=== PATIENT | female | born 1945 | race Caucasian/White ===

== ENCOUNTER 2020-04-17 10:08 | Inpatient (IN) ==
--- NOTE | 2020-04-17 10:42 | XRay Report ---
INDICATION: sob, cough TECHNIQUE: AP portable semiupright chest x-ray COMPARISON: Previous chest x-ray dated 06/25/2016 FINDINGS: Lungs:Focal infiltrate at the right lung base. This is a new finding since 06/25/2016. Appearance is consistent with pneumonia. Lungs are otherwise negative. No other focal infiltrate or mass. Heart, vascular:No significant cardiomegaly. Pulmonary vascularity is normal. No pulmonary edema or pulmonary congestion Mediastinum, salvador:No mediastinal widening. No hilar mass Pleura:No pleural fluid. No pleural-based mass or calcification Skeletal:There is left convex thoracolumbar scoliosis. No acute abnormality IMPRESSION: 1. Focal infiltrate at the right lung base consistent with pneumonia 2. Otherwise negative chest x-ray Interpreted and Authenticated by: Cristóbal Peralta 04/17/20
[2020-04-17] MEDS ORDERED: AZITHROMYCIN 500 MG in DEXTROSE 5% IN WATER 250 ML IV ONE (10:49)
[2020-04-17] MEDS ORDERED: cefTRIAXone 1 GM VIAL IV ONE ×2 (10:49→15:00)
[2020-04-17] MEDS ORDERED: methylPREDNISolone SOD SUCC 125 MG/2 ML VIAL IV ONE (10:49)
[2020-04-17] MEDS ORDERED: ALBUTEROL SULFATE 5 MG/ML NEB SOLUTION BOTTLE NEB ONE (10:49)
--- NOTE | 2020-04-17 10:57 | Emergency Department Note ---
SOB HPI General Chief Complaint: Shortness of Breath/Dyspnea Stated Complaint: SOB Time Seen by Provider: 04/17/20 10:41 Source: patient and family Mode of arrival: wheelchair Limitations: no limitations History of Present Illness HPI Narrative: The patient presents with approximately 1 week of increasing cough and dyspnea. She has a history of COPD. She has been trying home nebulizers without success. She denies chest pain but does complain of mild nausea. She denies vomiting. She has had subjective fevers but denies any objective fever. She has not been tested for coronavirus but denies any exposure. She denies orthopnea or increased dyspnea with exertion. She denies pain in her legs. Related Data Home Medications Medication Instructions Recorded Confirmed albuterol sulfate 8.5 gm IH PRN PRN 06/25/16 07/09/16 amlodipine 10 mg PO QDAY 04/17/20 04/17/20 aspirin 81 mg PO QDAY 04/17/20 04/17/20 bupropion HCl 150 mg PO QAM 04/17/20 04/17/20 hydrocodone-acetaminophen 1 tab PO Q6H PRN 04/17/20 04/17/20 levothyroxine 125 mcg PO QDAY 04/17/20 04/17/20 montelukast 10 mg PO QDAY 04/17/20 04/17/20 pramipexole 0.125 mg PO BID 04/17/20 04/17/20 Previous Rx's Medication Instructions Recorded Accu-Chek 1 each FS ACHS strip 06/28/16 albuterol sulfate 2.5 mg NEB Q4HRT PRN #30 ampul.neb 06/28/16 ipratropium-albuterol 3 ml NEB TID #30 ampul.neb 06/28/16 atorvastatin 20 mg tablet 20 mg PO HS #90 tab 07/09/16 lisinopril 20 1 tab PO DAILY #90 tab 07/09/16 mg-hydrochlorothiazide 12.5 mg tablet miscellaneous medical supply #1 each 07/09/16 Allergies Allergy/AdvReac Type Severity Reaction Status Date / Time No Known Drug Allergies Allergy Verified 04/17/20 10:09 Review of Systems ROS ROS Narrative: Narrative: All systems ED: reviewed and negative except as stated. PFSH Narrative Patient History Narrative: Narrative: Medical/Surgical/Family History All Active Problems (Updated 04/17/20 @ 13:18 by Ace Hansen MD) Acute exacerbation of chronic obstructive airways disease (Chronic) Hypoxemic respiratory failure, chronic (Acute) Tobacco abuse (Acute) Alcoh dep NEC/NOS, unspec (Acute) Hypothyroid (Acute) Depression with anxiety (Chronic) HTN (hypertension) (Chronic) Community acquired pneumonia (Acute) Sepsis (Acute) Medical History (Updated 04/17/20 @ 13:18 by Ace Hansen MD) Acute exacerbation of chronic obstructive airways disease (Chronic) Alcoh dep NEC/NOS, unspec (Acute) Depression with anxiety (Chronic) HTN (hypertension) (Chronic) Hypothyroid (Acute) Hypoxemic respiratory failure, chronic (Acute) Tobacco abuse (Acute) Social History Smoking Status: Never smoker Alcohol Intake Frequency: holiday/special occasion only Substance Use: does not use Exam Narrative Narrative: Narrative: General Limitations: no limitations General appearance: alert and in no apparent distress Head Head: atraumatic ENT ENT: Absent mucous membranes dry Neck Neck: Present normal inspection Chest Chest: Present symmetric chest wall rise Respiratory Respiratory: Present wheezes and decreased breath sounds; Absent respiratory distress Cardiovascular Cardiovascular: Present tachycardia Adbominal Abdominal: Present soft; Absent distention and tenderness Extremities Extremities: Present normal inspection and other (Negative Homans sign bilaterally); Absent tenderness and pedal edema Neurological Neurological: Present alert Psychiatric Psychiatric: Present normal affect Skin Skin: Present warm Course Reevaluation(s) Reevaluation #1: Due to the patient's mildly elevated lactic acid, I do have a concern about discharging her. I spoke with the patient and she agreed to stay for 1 night to continue receiving therapy for her mild sepsis and pneumonia. Time: 12:26 Reevaluation #2: I spoke to the hospitalist, Dr. Knox. He agreed to come and evaluate this patient for local admission Vital Signs Vital signs: Vital Signs Temperature 99.0 F 04/17/20 10:09 Pulse Rate 132 H 04/17/20 10:09 Respiratory Rate 26 H 04/17/20 10:09 Blood Pressure 173/102 04/17/20 10:09 Pulse Oximetry (%) 95 04/17/20 10:09 Temperature 99.0 F 04/17/20 10:09 Pulse Rate 123 H 04/17/20 14:00 Respiratory Rate 16 04/17/20 14:00 Blood Pressure 136/88 04/17/20 14:00 Pulse Oximetry (%) 91 04/17/20 14:00 [facility] Narrative Medical decision making narrative: The patient presents with cough and increased dyspnea. She has a history of COPD. Differential includes pneumonia, COPD exacerbation, or viral infection, coronavirus considered. Cardiac etiology is less likely but we will rule that out with troponin and EKG. Patient has no concerning risk factors for pulmonary embolism. COPD exacerbation is a much more likely diagnosis. Plan to treat with albuterol and Solu-Medrol as well as give a dose of Rocephin and Zithromax. We will then reevaluate. Patient wishes to go home at the end of the visit if possible. Lab Data Lab results reviewed: Yes I reviewed the patient's lab results. Result diagrams: 04/17/20 10:21 04/17/20 10:21 Labs: Lab Results 04/17/20 04/17/20 04/17/20 Range/Units 10:21 10:21 10:21 WBC 10.5 (4.50-11.00) K/mcL RBC 4.92 (3.59-5.38) M/mcL Hgb 15.1 (11.2-15.7) g/dL Hct 45.0 H (34.1-44.9) % MCV 91.5 (80.0-100.0) fL MCH 30.7 (26.0-34.0) pg MCHC 33.6 (31.0-36.0) g/dL RDW 11.8 (11.5-14.5) % Plt Count 359 (140-440) K/mcL MPV 9.2 (7.4-10.4) fL Gran % 59.4 (38.0-78.0) % Lymph % (Auto) 28.4 (15.5-49.0) % Dixon % (Auto) 9.3 (1.0-12.0) % Eos % (Auto) 2.4 (0.0-7.0) % Baso % (Auto) 0.5 (0.0-2.0) % Gran # 6.23 (1.80-8.00) K/mcL Lymph # (Auto) 2.97 (1.50-4.80) K/mcL Dixon # (Auto) 0.97 H (0.10-0.90) K/mcL Eos # (Auto) 0.25 (0.00-0.70) K/mcL Baso # (Auto) 0.05 (0.00-0.30) K/mcL Band Neutrophils % VBG Lactic Acid (0.5-2.0) mmol/L Sodium 140 (133-145) mmol/L Potassium 4.0 (3.3-5.1) mmol/L Chloride 98 (96-108) mmol/L Carbon Dioxide 21 L (22-30) mmol/L Anion Gap 21.0 H (8-16) BUN 15 (8-23) mg/dl Creatinine 1.1 (0.6-1.1) mg/dl GFR Calculation 50 Glucose 123 H (70-105) mg/dL Calcium 10.6 H (8.6-10.4) mg/dl Total Bilirubin 0.5 (0.0-1.0) mg/dL AST 27 (0-37) U/l ALT 22 (0-40) U/l Alkaline Phosphatase 85 (39-117) U/L Troponin T < 0.01 (0-0.03) ng/ml Total Protein 8.6 H (5.9-8.4) gm/dL Albumin 5.0 (3.2-5.2) gm/dL Globulin 3.6 (2.2-3.7) gm/dL Albumin/Globulin Ratio 1.4 (1.0-2.3) Procalcitonin (<0.10) ng/mL 04/17/20 04/17/20 04/17/20 Range/Units 10:21 10:21 10:22 WBC (4.50-11.00) K/mcL RBC (3.59-5.38) M/mcL Hgb (11.2-15.7) g/dL Hct (34.1-44.9) % MCV (80.0-100.0) fL MCH (26.0-34.0) pg MCHC (31.0-36.0) g/dL RDW (11.5-14.5) % Plt Count (140-440) K/mcL MPV (7.4-10.4) fL Gran % (38.0-78.0) % Lymph % (Auto) (15.5-49.0) % Dixon % (Auto) (1.0-12.0) % Eos % (Auto) (0.0-7.0) % Baso % (Auto) (0.0-2.0) % Gran # (1.80-8.00) K/mcL Lymph # (Auto) (1.50-4.80) K/mcL Dixon # (Auto) (0.10-0.90) K/mcL Eos # (Auto) (0.00-0.70) K/mcL Baso # (Auto) (0.00-0.30) K/mcL Band Neutrophils % Not Reportable VBG Lactic Acid 3.2 H (0.5-2.0) mmol/L Sodium (133-145) mmol/L Potassium (3.3-5.1) mmol/L Chloride (96-108) mmol/L Carbon Dioxide (22-30) mmol/L Anion Gap (8-16) BUN (8-23) mg/dl Creatinine (0.6-1.1) mg/dl GFR Calculation Glucose (70-105) mg/dL Calcium (8.6-10.4) mg/dl Total Bilirubin (0.0-1.0) mg/dL AST (0-37) U/l ALT (0-40) U/l Alkaline Phosphatase (39-117) U/L Troponin T (0-0.03) ng/ml Total Protein (5.9-8.4) gm/dL Albumin (3.2-5.2) gm/dL Globulin (2.2-3.7) gm/dL Albumin/Globulin Ratio (1.0-2.3) Procalcitonin 0.13 (<0.10) ng/mL Radiology Data Radiology results reviewed: Yes I reviewed the patient's radiology results. EKG Data EKG #1: EKG attestation: Yes I reviewed and interpreted this EKG. EKG results narrative: Sinus, rate 115, normal axis, normal intervals, narrow complex QRS, nonspecific ST and T changes but no sign of acute ST elevation ME CC TIME Critical Care Time Critical Care Time: Yes Total Critical Care Time: 75 Attestation: DYLAN Hansen Discharge Plan Patient/Caregiver Discharge Instructions Pt seen by MARGARINE CHURN OPERATOR/PA only: No Clinical Impression: Community acquired pneumonia, Sepsis Patient Disposition: Xfer As Outpt/Obs ([facility]) Follow up with: Kristie Dowling ARNP [Primary Care Provider] - Prescriptions: No Action atorvastatin 20 MG tablet 20 mg PO HS Qty: 90 RF: 0 lisinopril-hydrochlorothiazide 1 TAB tablet 1 tab PO DAILY Qty: 90 RF: 0 (DME) miscellaneous medical supply [Blood Pressure Cuff] misc See Dose Instructions .ROUTE .MEDSUPPLY Qty: 1 RF: 0 albuterol sulfate 8.5 GM HFA aerosol inhaler 8.5 gm IH PRN PRN (Reason: Cough) RF: 0 Accu-Chek 1 EACH strip 1 each FS ACHS RF: 0 ipratropium-albuterol 3 ML solution for nebulization 3 ml NEB TID Qty: 30 RF: 0 albuterol sulfate 2.5 MG/3 ML solution for nebulization 2.5 mg NEB Q4HRT PRN (Reason: Shortness Of Breath Or Wheezing) Qty: 30 RF: 0 amlodipine 10 mg Tablet 10 mg PO QDAY RF: 0 hydrocodone-acetaminophen 10-325 mg Tablet 1 tab PO Q6H PRN (Reason: Pain) RF: 0 levothyroxine 125 mcg Tablet 125 mcg PO QDAY RF: 0 pramipexole 0.125 mg Tablet 0.125 mg PO BID RF: 0 aspirin 81 mg Tablet,Chewable 81 mg PO QDAY RF: 0 montelukast 10 mg Tablet 10 mg PO QDAY RF: 0 bupropion HCl 150 mg Tablet Extended Release 24 Hr 150 mg PO QAM RF: 0
[2020-04-17 11:23] LABS: Basophils # (Auto) 0.05 K/mcL (0.00-0.30); Basophils % (Auto) 0.5 % (0.0-2.0); Eosinophils # (Auto) 0.25 K/mcL (0.00-0.70); Eosinophils % (Auto) 2.4 % (0.0-7.0); Granulocytes % (Auto) 59.4 % (38.0-78.0); Hemoglobin 15.1 g/dL (11.2-15.7); Lymphocytes # (Auto) 2.97 K/mcL (1.50-4.80); Lymphocytes % (Auto) 28.4 % (15.5-49.0); Mean Cell Volume 91.5 fL (80.0-100.0); Mean Corpuscular HGB Conc 33.6 g/dL (31.0-36.0); Mean Platelet Volume 9.2 fL (7.4-10.4); Monocytes # (Auto) 0.97 K/mcL (0.10-0.90); Monocytes % (Auto) 9.3 % (1.0-12.0); Platelet Count 359 K/mcL (140-440); RBC 4.92 M/mcL (3.59-5.38); Red Cell Distribution Width 11.8 % (11.5-14.5); WBC 10.5 K/mcL (4.50-11.00)
[2020-04-17] MEDS ORDERED: 0.9 % SODIUM CHLORIDE 1,000 ML IV ONE (11:39)
[2020-04-17 11:51] LABS: ALT/SGPT 22 U/l (0-40); AST/SGOT 27 U/l (0-37); Albumin/Globulin Ratio 1.4 (1.0-2.3); Alkaline Phosphatase 85 U/L (39-117); Bilirubin,Total 0.5 mg/dL (0.0-1.0); Blood Urea Nitrogen 15 mg/dl (8-23); Calcium 10.6 mg/dl (8.6-10.4); Carbon Dioxide 21 mmol/L (22-30); Chloride 98 mmol/L (96-108); Globulin 3.6 gm/dL (2.2-3.7); Glomerular Filtration Rate 50; Glucose 123 mg/dL (70-105)
--- NOTE | 2020-04-17 13:34 | Internal Med History&Physical ---
HPI History of Present Illness Patient information: Note initiated : 04/17/20 at 1:26 pm Service Date, if different from initiated Date: [] Patient: Rosita Blankenship a 74 y/o F admitted on for Shortness of breath. Chief Complaint: [] History of present illness: Ms. Blankenship is a 74 year old F Presents to the ED with worsening cough and shortness of breath. Patient has COPD and does have chronic shortness of breath and cough but states over the past week or cough is gotten worse and is productive of white thick sputum. Her shortness of breath is worse as well. She has inhalers and nebulizers at home which give her temporary relief. But is gotten so bad that she felt she needed come to the ED. She does feel chills and occasionally hot. She has some nausea but no vomiting. No chest pain. He does feel wheezy and also has lost her appetite. He does admit to feeling that sometimes food or drink goes down the wrong pipe lately. Work-up in the ED revealed that chest x-ray showed a right lower lobe infiltrate. She had a elevated lactate. She was satting low 90s on room air on pulse ox. But she was tachycardic. Received nebulizer treatment with some improvement in ED. Review of Systems: Pertinent positives as above. Denies headache/vomiting/chest or abdominal pain/diarrhea. Remaining 10 point review of system reviewed negative PFSH PFSH All Active Problems (Updated 04/17/20 @ 13:18 by Ace Hansen MD) Acute exacerbation of chronic obstructive airways disease (Chronic) Hypoxemic respiratory failure, chronic (Acute) Tobacco abuse (Acute) Alcoh dep NEC/NOS, unspec (Acute) Hypothyroid (Acute) Depression with anxiety (Chronic) HTN (hypertension) (Chronic) Community acquired pneumonia (Acute) Sepsis (Acute) Medical History (Updated 04/17/20 @ 13:18 by Ace Hansen MD) Acute exacerbation of chronic obstructive airways disease (Chronic) Alcoh dep NEC/NOS, unspec (Acute) Depression with anxiety (Chronic) HTN (hypertension) (Chronic) Hypothyroid (Acute) Hypoxemic respiratory failure, chronic (Acute) Tobacco abuse (Acute) Social History (Updated 04/17/20 @ 13:28 by Rolly Knox DO) smoking status: Never smoker quit status: considering quitting alcohol intake frequency: holiday/special occasion only substance use type: does not use additional history: Past medical history: COPD on 4 L of oxygen at night none during the day Hypertension/hyperlipidemia Depression/anxiety Surgical history: Tonsillectomy partial hysterectomy cholecystectomy Family history: Mother had COPD she did not know her father's medical history Social history: Patient quit smoking 2 9 years ago drinks alcohol rarely and lives at home with family MEDS/ALLERGIES Home Medications and Allergies Home Medications Medication Instructions Recorded Confirmed Type albuterol sulfate 8.5 gm IH PRN PRN 06/25/16 07/09/16 History cetirizine 10 mg PO DAILY 06/25/16 07/09/16 History clonazepam 0.5 mg SL BID 06/25/16 07/09/16 History Accu-Chek 1 each FS ACHS strip 06/28/16 07/09/16 Rx albuterol sulfate 2.5 mg NEB Q4HRT PRN #30 ampul.neb 06/28/16 07/09/16 Rx codeine-guaifenesin 5 ml PO Q6HP PRN #120 ml 06/28/16 07/09/16 Rx ipratropium-albuterol 3 ml NEB TID #30 ampul.neb 06/28/16 07/09/16 Rx nicotine 21 mg TOPICAL DAILY@1000 #14 patch 06/28/16 07/09/16 Rx prednisone 10 mg PO QAC #42 tab 06/28/16 07/09/16 Rx atorvastatin 20 mg tablet 20 mg PO HS #90 tab 07/09/16 07/09/16 Rx citalopram 20 mg tablet 40 mg PO HS #90 tab 07/09/16 07/09/16 Rx hydrocodone 7.5 mg-acetaminophen 1 tab PO Q6HP PRN #30 tab 07/09/16 07/09/16 Rx 325 mg tablet lisinopril 20 1 tab PO DAILY #90 tab 07/09/16 07/09/16 Rx mg-hydrochlorothiazide 12.5 mg tablet miscellaneous medical supply #1 each 07/09/16 07/09/16 Rx amlodipine 10 mg PO QDAY 04/17/20 04/17/20 History Allergies Allergy/AdvReac Type Severity Reaction Status Date / Time No Known Drug Allergies Allergy Verified 04/17/20 10:09 EXAM Constitutional Vitals: Temp Pulse Resp BP Pulse Ox 99.0 F 118 H 22 130/68 92 04/17/20 10:09 04/17/20 12:47 04/17/20 12:47 04/17/20 12:47 04/17/20 12:47 Exam: General: Alert, Awake, No acute Distress Eyes/N/T: EOMI, PERRL, dry MM Head/Neck: neck supple, normocephalic atraumatic CV: Tachycardic but regular, No murmurs, normal s1/s2 Pulm: b/l wheezing and diminished bases. Mild rhonchi, labored. Abd: soft, nontender, +BS x4 Ext: no clubbing/cyanosis/edema Neuro: Alert, no focal deficits, moves all extremities, CN 2-12 grossly intact, symmetrical strength b/l upper/lower, sensations intact b/l upper/lower Skin: warm/dry DATA Data Completed and Pending Labs: Labs from last 24 hours 04/17/20 04/17/20 04/17/20 12:46 10:22 10:21 WBC RBC Hgb Hct MCV MCH MCHC RDW Plt Count MPV Gran % Lymph % (Auto) Woodward % (Auto) Eos % (Auto) Baso % (Auto) Gran # Lymph # (Auto) Woodward # (Auto) Eos # (Auto) Baso # (Auto) Total Counted Band Neutrophils % Platelet Estimate RBC Morphology VBG Lactic Acid 3.2 H Sodium Potassium Chloride Carbon Dioxide Anion Gap BUN Creatinine GFR Calculation Glucose Calcium Total Bilirubin AST ALT Alkaline Phosphatase Troponin T Total Protein Albumin Globulin Albumin/Globulin Ratio Procalcitonin Pending SARS-CoV-2 (PCR) Pending 04/17/20 04/17/20 04/17/20 10:21 10:21 10:21 WBC RBC Hgb Hct MCV MCH MCHC RDW Plt Count MPV Gran % Lymph % (Auto) Woodward % (Auto) Eos % (Auto) Baso % (Auto) Gran # Lymph # (Auto) [place]ward # (Auto) Eos # (Auto) Baso # (Auto) Total Counted Pending Band Neutrophils % Not Reportable Platelet Estimate Pending RBC Morphology Pending VBG Lactic Acid Sodium 140 Potassium 4.0 Chloride 98 Carbon Dioxide 21 L Anion Gap 21.0 H BUN 15 Creatinine 1.1 GFR Calculation 50 Glucose 123 H Calcium 10.6 H Total Bilirubin 0.5 AST 27 ALT 22 Alkaline Phosphatase 85 Troponin T < 0.01 Total Protein 8.6 H Albumin 5.0 Globulin 3.6 Albumin/Globulin Ratio 1.4 Procalcitonin SARS-CoV-2 (PCR) 04/17/20 10:21 WBC 10.5 RBC 4.92 Hgb 15.1 Hct 45.0 H MCV 91.5 MCH 30.7 MCHC 33.6 RDW 11.8 Plt Count 359 MPV 9.2 Gran % 59.4 Lymph % (Auto) 28.4 Woodward % (Auto) 9.3 Eos % (Auto) 2.4 Baso % (Auto) 0.5 Gran # 6.23 Lymph # (Auto) 2.97 Woodward # (Auto) 0.97 H Eos # (Auto) 0.25 Baso # (Auto) 0.05 Total Counted Band Neutrophils % Platelet Estimate RBC Morphology VBG Lactic Acid Sodium Potassium Chloride Carbon Dioxide Anion Gap BUN Creatinine GFR Calculation Glucose Calcium Total Bilirubin AST ALT Alkaline Phosphatase Troponin T Total Protein Albumin Globulin Albumin/Globulin Ratio Procalcitonin SARS-CoV-2 (PCR) A/P Narrative A/P Narrative: A: *AECOPD *RLL PNA(?Aspiration): *Dyspnea, labored breathing, concern for exhaustion and subsequent respiratory failure: *Lactic acidosis: *SIRS: 2/2 abvoe *HTN/HLD: *Depression/anxiety: * P: -steroids (wean)/IH's -Rocephin/Azithro -pending BC/SC/RVP/COVID -check ABG -f/u lactate -IS/Acapella -ST eval - -ppx: lovenox Time Spent With Patient Time: Total time spent is greater than 50% in coordination of care (as documented) at patient's floor/unit and/or counseling patient:
[2020-04-17 14:08] LABS: Eosinophils % (Manual) 2 % (0-7); Lymphocytes % 27 % (15-49); Monocytes % (Manual) 7 % (1-12); Platelet Estimate NORMAL (NORMAL); RBC Morphology NORMAL (NORMAL); Reactive Lymphocytes 4 % (0-2); Segmented Neutrophils % 60 % (38-78)
[2020-04-17] MEDS ORDERED: DEXTROSE 50% 50 ML VIAL IV PRN (14:18)
[2020-04-17] MEDS ORDERED: POTASSIUM CHLORIDE 20 MEQ TABLET PO PRN ×2 (14:18)
[2020-04-17] MEDS ORDERED: POTASSIUM CHLORIDE 40 MEQ in DEXTROSE 5% IN WATER 500 ML IV PRN (14:18)
[2020-04-17] MEDS ORDERED: POLYETHYLENE GLYCOL 3350 17 GM PACKET PO PRN (14:18)
[2020-04-17] MEDS ORDERED: MAGNESIUM SULFATE 2 GM/50 ML BAG IV PRN (14:18)
[2020-04-17] MEDS ORDERED: ONDANSETRON 4 MG/2 ML VIAL IV PRN (14:18)
[2020-04-17] MEDS ORDERED: DEXTROSE 31 GM ORAL.SUSP PO PRN (14:18)
[2020-04-17] MEDS: methylPREDNISolone SOD SUCC 125 MG/2 ML VIAL IV SCH (16:00)
[2020-04-17] MEDS: ACETAMINOPHEN 325 MG TABLET PO PRN (16:01)
[2020-04-17] MEDS: 0.9 % SODIUM CHLORIDE 10 ML SYRINGE IV SCH ×2 (16:34→21:10)
[2020-04-17] MEDS: INSULIN LISPRO 1 UNIT/0.01 ML UNIT SQ SCH ×2 (17:16→21:08)
[2020-04-17] MEDS: IPRATROPIUM/ALBUTEROL SULFATE 1 PUFF INHALER INH SCH ×2 (17:59→21:06)
[2020-04-17] MEDS ORDERED: METOPROLOL TARTRATE 25 MG TABLET PO ONE (19:57)
[2020-04-17] MEDS: ATORVASTATIN 20 MG TABLET PO SCH (21:06)
[2020-04-17] MEDS: DOCUSATE SODIUM 100 MG CAPSULE PO SCH (21:06)
[2020-04-17] MEDS: PRAMIPEXOLE 0.25 MG TABLET PO SCH (21:06)
[2020-04-17] MEDS: HYDROcodone/APAP 10/325MG TABLET PO PRN (21:06)
[2020-04-18] MEDS: methylPREDNISolone SOD SUCC 125 MG/2 ML VIAL IV SCH ×4 (00:01→21:59)
[2020-04-18] MEDS: HYDROcodone/APAP 10/325MG TABLET PO PRN ×3 (04:07→18:03)
[2020-04-18] MEDS: 0.9 % SODIUM CHLORIDE 10 ML SYRINGE IV SCH ×3 (05:53→21:59)
[2020-04-18 06:45] LABS: Basophils # (Auto) 0.01 K/mcL (0.00-0.30); Basophils % (Auto) 0.1 % (0.0-2.0); Eosinophils # (Auto) 0 K/mcL (0.00-0.70); Eosinophils % (Auto) 0 % (0.0-7.0); Granulocytes % (Auto) 85.7 % (38.0-78.0); Hematocrit 39.7 % (34.1-44.9); Hemoglobin 13.6 g/dL (11.2-15.7); Lymphocytes # (Auto) 1.35 K/mcL (1.50-4.80); Lymphocytes % (Auto) 12.4 % (15.5-49.0); Mean Cell Volume 90.2 fL (80.0-100.0); Mean Corpuscular HGB Conc 34.3 g/dL (31.0-36.0); Mean Platelet Volume 9.2 fL (7.4-10.4); Monocytes % (Auto) 1.8 % (1.0-12.0); Platelet Count 340 K/mcL (140-440); Red Cell Distribution Width 11.6 % (11.5-14.5); WBC 10.9 K/mcL (4.50-11.00)
--- NOTE | 2020-04-18 06:46 | XRay Report ---
INDICATION: f/u RLL infiltrate TECHNIQUE: AP portable semiupright chest x-ray COMPARISON: Previous examinations dated 04/17/2020, 06/25/2016 FINDINGS: Lungs:Mild density at the right lung base is essentially unchanged since 04/17/2020. No new abnormality Heart, vascular:No significant cardiomegaly. Pulmonary vascularity is normal. No pulmonary edema or pulmonary congestion Mediastinum, salvador:No mediastinal widening. No hilar mass Pleura:No pleural fluid. No pleural-based mass or calcification Skeletal:Significant left convex thoracolumbar scoliosis IMPRESSION: 1. Mild right basilar infiltrate 2. No interval change since 04/17/2020 Interpreted and Authenticated by: Cristóbal Peralta 04/18/20
[2020-04-18 07:15] LABS: ALT/SGPT 21 U/l (0-40); AST/SGOT 29 U/l (0-37); Albumin 4.5 gm/dL (3.2-5.2); Albumin/Globulin Ratio 1.4 (1.0-2.3); Alkaline Phosphatase 77 U/L (39-117); Bilirubin,Direct < 0.2 mg/dL (0.0-0.3); Bilirubin,Total 0.3 mg/dL (0.0-1.0); Calcium 9.9 mg/dl (8.6-10.4); Carbon Dioxide 21 mmol/L (22-30); Chloride 97 mmol/L (96-108); Globulin 3.2 gm/dL (2.2-3.7); Glomerular Filtration Rate 50; Glucose 136 mg/dL (70-105); Lactate Dehydrogenase 252 U/L (94-250); Phosphorous 3.6 mg/dL (2.7-4.5); Triglycerides 60 mg/dl (<150); Uric Acid 6.9 mg/dL (2.5-8.0)
[2020-04-18 07:16] LABS: Blood Urea Nitrogen 24 mg/dl (8-23)
[2020-04-18] MEDS: INSULIN LISPRO 1 UNIT/0.01 ML UNIT SQ SCH ×4 (07:54→20:39)
--- NOTE | 2020-04-18 07:54 | Internal Med Progress Note ---
SUBJECTIVE Subjective Patient information: Note initiated : 04/18/20 at 7:48 am Service Date, if different from initiated Date: [] Patient: Rosita Blankenship a 74 y/o F admitted on 04/17/20 for Shortness of breath. Chief Complaint: [] Interval history: History of present illness: Ms. Blankenship is a 74 year old F Presents to the ED with worsening cough and shortness of breath. Patient has COPD and does have chronic shortness of breath and cough but states over the past week or cough is gotten worse and is productive of white thick sputum. Her shortness of breath is worse as well. She has inhalers and nebulizers at home which give her temporary relief. But is gotten so bad that she felt she needed come to the ED. She does feel chills and occasionally hot. She has some nausea but no vomiting. No chest pain. He does feel wheezy and also has lost her appetite. He does admit to feeling that sometimes food or drink goes down the wrong pipe lately. Work-up in the ED revealed that chest x-ray showed a right lower lobe infiltrate. She had a elevated lactate. She was satting low 90s on room air on pulse ox. But she was tachycardic. Received nebulizer treatment with some improvement in ED. 04/18 Patient states her breathing was improving yesterday afternoon early evening but then says last night it got bad again. Cough was more productive yesterday but overnight unable to produce sputum. Awaiting speech therapy evaluation COVID testing. She appears less distressed than when I saw her in the ED yesterday. Review of Systems: denies headache/fever/chills/nausea/vomiting/chest or abdominal pain/diarrhea. Otherwise see above. Constitutional Vitals: Vital Signs Temp Pulse Resp BP Pulse Ox 97.4 F 100 H 18 130/76 92 04/18/20 07:22 04/18/20 07:22 04/18/20 07:22 04/18/20 07:22 04/18/20 07:22 Period Temp Pulse Resp BP Sys/Barrett Pulse Ox Last 24 Hr 97.1 F-99.0 F 86-132 10-41 107-173/64-102 89-97 Intake and Output 04/17/20 04/18/20 04/18/20 21:59 05:59 13:59 Intake Total 1200 800 Output Total 200 800 Balance 1000 0 Weight 72.802 kg Intake & Output: Intake & Output 04/17/20 04/18/20 04/18/20 21:59 05:59 13:59 Intake Total 1200 800 Output Total 200 800 Balance 1000 0 Weight 72.802 kg Intake: IV 600 Sodium Chloride 0.9% 1,000 ml @ 600 Wide Open IV BOLUS ONE Rx#: [id number] Oral 600 800 Output: Void Amount 200 800 Other: Meal Nourishment/Supplement Percent of Meal Consumed 100% Feeding Ability Independent Urine Appearance Clear Clear Urine Color Bright Yellow Bright Yellow Urine Odor Normal Normal Stool Size Large Stool Color Brown Black Stool Consistency Soft Formed # Voids 1 Exam: General: Alert, Awake, No acute Distress Eyes/N/T: EOMI, Head/Neck: neck supple, CV: mildly Tachycardic but regular, No murmurs, Pulm: b/l wheezing and diminished bases. Mild b/l rhonchi. Abd: soft, nontender, +BS x4 Ext: no clubbing/cyanosis/edema Neuro: Alert, no focal deficits, moves all extremities, Skin: warm/dry OBJ DATA Labs CBC & Chem 7: 04/18/20 05:44 04/18/20 05:44 Labs: Abnormal Lab Results 04/18/20 04/18/20 04/17/20 05:44 05:44 10:22 Hct Gran % 85.7 H Lymph % (Auto) 12.4 L Gran # 9.34 H Lymph # (Auto) 1.35 L [place] # (Auto) Reactive Lymphocytes VBG Lactic Acid 3.2 H Carbon Dioxide 21 L Anion Gap BUN 24 H Glucose 136 H Calcium Lactate Dehydrogenase 252 H Total Protein 04/17/20 04/17/20 04/17/20 10:21 10:21 10:21 Hct 45.0 H Gran % Lymph % (Auto) Gran # Lymph # (Auto) [place] # (Auto) 0.97 H Reactive Lymphocytes 4 H VBG Lactic Acid Carbon Dioxide 21 L Anion Gap 21.0 H BUN Glucose 123 H Calcium 10.6 H Lactate Dehydrogenase Total Protein 8.6 H Meds: Medications Acetaminophen (Tylenol) 650 mg PO Q6HP PRN PRN Reason: PAIN/FEVER > 101 Last Admin: 04/17/20 16:01 Dose: 650 mg Documented by: Hydrocodone Bitart/Acetaminophen ([place] 10/325mg) 1 tab PO Q6HP PRN; Protocol PRN Reason: Per Pain Protocol Last Admin: 04/18/20 04:07 Dose: 1 tab Documented by: Albuterol/Ipratropium (Combivent) 2 puff INH QID [facility] Last Admin: 04/17/20 21:06 Dose: 2 puff Documented by: Amlodipine Besylate (Norvasc) 10 mg PO QDAY [facility] Aspirin (Aspirin) 81 mg PO QDAY [facility] Atorvastatin Calcium (Lipitor) 20 mg PO HS [facility] Last Admin: 04/17/20 21:06 Dose: 20 mg Documented by: Bupropion HCl (Wellbutrin Xl) 150 mg PO QAM [facility] Dextrose (Dextrose 50%) 0 ml IV UD PRN PRN Reason: Hypoglycemia Diagnostic Test (Pha) (Accu-Chek) 1 each FS [facility] Last Admin: 04/17/20 21:08 Dose: 1 each Documented by: Docusate Sodium (Colace) 100 mg PO BID [facility] Last Admin: 04/17/20 21:06 Dose: 100 mg Documented by: Enoxaparin Sodium (Lovenox) 40 mg SQ DAILY [facility] Glucose (Insta-Glucose) 15 gm PO PRN PRN PRN Reason: Hypoglycemia Hydrochlorothiazide (Oretic) 12.5 mg PO DAILY [facility] Potassium Chloride 40 meq/ (Dextrose) 520 mls @ 130 mls/hr IV UD PRN PRN Reason: Potassium < 3 Magnesium Sulfate (Magnesium Sulfate) 2 gm in 50 mls @ 50 mls/hr IV UD PRN PRN Reason: Magnesium </= 1.6 Ceftriaxone Sodium 2 gm/ (Dextrose) 50 mls @ 100 mls/hr IV Q24H [facility]; Protocol Azithromycin 500 mg/ Dextrose 250 mls @ 250 mls/hr IV Q24H [facility]; Protocol Stop: 04/20/20 10:59 Insulin Human Lispro (Humalog) 0 unit SQ ACHS [facility]; Protocol Last Admin: 04/17/20 21:08 Dose: Not Given Documented by: Levothyroxine Sodium (Synthroid) 125 mcg PO QDAY [facility] Lisinopril (Zestril) 20 mg PO DAILY [facility] Methylprednisolone Sodium Succinate (Solu-Medrol) 80 mg IV Q8 [facility] Last Admin: 04/18/20 05:53 Dose: 80 mg Documented by: Montelukast Sodium (Singular) 10 mg PO QDAY [facility] Ondansetron HCl (Zofran) 4 mg IV Q4HP PRN PRN Reason: Nausea And Vomiting Polyethylene Glycol (Miralax) 17 gm PO DAILYP PRN PRN Reason: Constipation Potassium Chloride (Kdur) 40 meq PO UD PRN PRN Reason: Potssium is 3-3.5 Potassium Chloride (Kdur) 40 meq PO UD PRN PRN Reason: Potassium < 3 Pramipexole Dihydrochloride (Mirapex) 0.125 mg PO BID [facility] Last Admin: 04/17/20 21:06 Dose: 0.125 mg Documented by: Sodium Chloride (Saline Flush) 10 ml IV Q8 [facility] Last Admin: 04/18/20 05:53 Dose: 10 ml Documented by: A/P Narrative A/P Narrative: A: *AECOPD: -RVP neg *RLL PNA(?Aspiration): *Dyspnea, labored breathing: *Lactic acidosis: resolved *SIRS: 2/2 abvoe *HTN/HLD: *Depression/anxiety: * P: -steroids (wean)/IH's, will try neb treatment this morning -Rocephin/Azithro -pending BC/SC/COVID -IS/Acapella -ST eval - -ppx: lovenox Time Spent With Patient Time: Total time spent is greater than 50% in coordination of care (as documented) at patient's floor/unit and/or counseling patient: QUALITY VTE Deep Vein Thrombosis/Pulmonary Embolism Present on Admission: No
[2020-04-18] MEDS: IPRATROPIUM/ALBUTEROL SULFATE 1 PUFF INHALER INH SCH ×4 (08:01→20:36)
[2020-04-18] MEDS ORDERED: IPRATROPIUM/ALBUTEROL 3 ML AMPUL.NEB NEB ONE (08:26)
[2020-04-18] MEDS ORDERED: IPRATROPIUM/ALBUTEROL SULFATE 1 PUFF INHALER INH PRN (08:54)
[2020-04-18] MEDS ORDERED: LISINOPRIL/HCTZ 20/12.5MG TABLET PO SCH (09:00)
[2020-04-18] MEDS: cefTRIAXone 2 GM in DEXTROSE 5% IN WATER 50 ML IV SCH (09:54)
[2020-04-18] MEDS: HYDROCHLOROTHIAZIDE 12.5 MG CAPSULE PO SCH (09:57)
[2020-04-18] MEDS: ASPIRIN 81 MG TAB.CHEW PO SCH (09:57)
[2020-04-18] MEDS: MONTELUKAST 10 MG TABLET PO SCH (09:57)
[2020-04-18] MEDS: PRAMIPEXOLE 0.25 MG TABLET PO SCH ×2 (09:58→20:36)
[2020-04-18] MEDS: amLODIPine 10 MG TABLET PO SCH (09:58)
[2020-04-18] MEDS: buPROPion 150 MG TAB.XL.24H PO SCH (09:59)
[2020-04-18] MEDS: LEVOTHYROXINE 125 MCG TABLET PO SCH (09:59)
[2020-04-18] MEDS: LISINOPRIL 20 MG TABLET PO SCH (09:59)
[2020-04-18] MEDS: DOCUSATE SODIUM 100 MG CAPSULE PO SCH ×2 (10:01→20:37)
[2020-04-18] MEDS: ENOXAPARIN 40 MG/0.4 ML SYRINGE SQ SCH (10:02)
[2020-04-18] MEDS: AZITHROMYCIN 500 MG in DEXTROSE 5% IN WATER 250 ML IV SCH (10:32)
[2020-04-18] MEDS: ATORVASTATIN 20 MG TABLET PO SCH (20:36)
[2020-04-18] MEDS: ACETAMINOPHEN 325 MG TABLET PO PRN (20:36)
[2020-04-19] MEDS: HYDROcodone/APAP 10/325MG TABLET PO PRN ×2 (04:10→13:17)
[2020-04-19] MEDS: 0.9 % SODIUM CHLORIDE 10 ML SYRINGE IV SCH (06:01)
[2020-04-19] MEDS: methylPREDNISolone SOD SUCC 125 MG/2 ML VIAL IV SCH (06:01)
[2020-04-19] MEDS: ACETAMINOPHEN 325 MG TABLET PO PRN (06:04)
[2020-04-19] MEDS: LISINOPRIL 20 MG TABLET PO SCH (07:44)
[2020-04-19] MEDS: LEVOTHYROXINE 125 MCG TABLET PO SCH (07:44)
[2020-04-19] MEDS: HYDROCHLOROTHIAZIDE 12.5 MG CAPSULE PO SCH (07:44)
[2020-04-19] MEDS: PRAMIPEXOLE 0.25 MG TABLET PO SCH (07:44)
[2020-04-19] MEDS: MONTELUKAST 10 MG TABLET PO SCH (07:44)
[2020-04-19] MEDS: amLODIPine 10 MG TABLET PO SCH (07:45)
[2020-04-19] MEDS: DOCUSATE SODIUM 100 MG CAPSULE PO SCH (07:45)
[2020-04-19] MEDS: ASPIRIN 81 MG TAB.CHEW PO SCH (07:45)
[2020-04-19] MEDS: buPROPion 150 MG TAB.XL.24H PO SCH (07:45)
[2020-04-19 07:47] LABS: ALT/SGPT 22 U/l (0-40); AST/SGOT 38 U/l (0-37); Albumin 4.6 gm/dL (3.2-5.2); Albumin/Globulin Ratio 1.5 (1.0-2.3); Alkaline Phosphatase 68 U/L (39-117); Bilirubin,Direct < 0.2 mg/dL (0.0-0.3); Bilirubin,Total 0.3 mg/dL (0.0-1.0); Blood Urea Nitrogen 27 mg/dl (8-23); Calcium 10.1 mg/dl (8.6-10.4); Carbon Dioxide 24 mmol/L (22-30); Chloride 99 mmol/L (96-108); Glomerular Filtration Rate 64; Glucose 142 mg/dL (70-105); Lactate Dehydrogenase 249 U/L (94-250); Phosphorous 4.2 mg/dL (2.7-4.5); Triglycerides 95 mg/dl (<150); Uric Acid 7.2 mg/dL (2.5-8.0)
[2020-04-19] MEDS: IPRATROPIUM/ALBUTEROL SULFATE 1 PUFF INHALER INH SCH (07:48)
[2020-04-19] MEDS: cefTRIAXone 2 GM in DEXTROSE 5% IN WATER 50 ML IV SCH (07:48)
[2020-04-19] MEDS ORDERED: METOPROLOL SUCCINATE 25 MG TAB.XL.24H PO ONE (07:56)
[2020-04-19] MEDS: ENOXAPARIN 40 MG/0.4 ML SYRINGE SQ SCH (07:57)
--- NOTE | 2020-04-19 07:57 | Internal Med Progress Note ---
SUBJECTIVE Subjective Patient information: Note initiated : 04/19/20 at 7:52 am Service Date, if different from initiated Date: [] Patient: Rosita Blankenship a 74 y/o F admitted on 04/17/20 for Shortness of breath. Chief Complaint: [] Interval history: History of present illness: Ms. Blankenship is a 74 year old F Presents to the ED with worsening cough and shortness of breath. Patient has COPD and does have chronic shortness of breath and cough but states over the past week or cough is gotten worse and is productive of white thick sputum. Her shortness of breath is worse as well. She has inhalers and nebulizers at home which give her temporary relief. But is gotten so bad that she felt she needed come to the ED. She does feel chills and occasionally hot. She has some nausea but no vomiting. No chest pain. He does feel wheezy and also has lost her appetite. He does admit to feeling that sometimes food or drink goes down the wrong pipe lately. Work-up in the ED revealed that chest x-ray showed a right lower lobe infiltrate. She had a elevated lactate. She was satting low 90s on room air on pulse ox. But she was tachycardic. Received nebulizer treatment with some improvement in ED. 04/18 Patient states her breathing was improving yesterday afternoon early evening but then says last night it got bad again. Cough was more productive yesterday but overnight unable to produce sputum. Awaiting speech therapy evaluation COVID testing. She appears less distressed than when I saw her in the ED yesterday. 04/19 Patient feels much better today. Does not appreciate wheeziness. Minimal dyspnea. Minimal cough. Weaning down steroids. And by speech therapy and found to be aspirating on thin liquids and placed on modified diet. Review of Systems: denies headache/fever/chills/nausea/vomiting/chest or abdominal pain/diarrhea. Otherwise see above. Constitutional Vitals: Vital Signs Temp Pulse Resp BP Pulse Ox 98.6 F 102 H 20 123/78 91 04/19/20 07:09 04/19/20 07:09 04/19/20 07:09 04/19/20 07:09 04/19/20 07:09 Period Temp Pulse Resp BP Sys/Barrett Pulse Ox Last 24 Hr 97.2 F-98.8 F 97-105 8-22 116-141/68-78 89-92 Intake and Output 04/18/20 04/19/20 04/19/20 21:59 05:59 13:59 Intake Total 750 1000 Output Total 1100 Balance 750 -100 Weight 73.845 kg Intake & Output: Intake & Output 04/18/20 04/19/20 04/19/20 21:59 05:59 13:59 Intake Total 750 1000 Output Total 1100 Balance 750 -100 Weight 73.845 kg Intake: Oral 750 1000 Output: Void Amount 1100 Other: Meal Lunch Percent of Meal Consumed 100% Feeding Ability Independent Urine Appearance Clear Clear Urine Color Pale Bright Yellow Urine Odor Normal Normal # Voids 5 Exam: General: Alert, Awake, No acute Distress Eyes/N/T: EOMI, Head/Neck: neck supple, CV: mildly Tachycardic but regular, No murmurs, Pulm: no wheezing today. Mild b/l rhonchi improved Abd: soft, nontender, +BS x4 Ext: no clubbing/cyanosis/edema Neuro: Alert, no focal deficits, moves all extremities, Skin: warm/dry OBJ DATA Labs CBC & Chem 7: 04/18/20 05:44 04/19/20 06:02 Labs: Abnormal Lab Results 04/19/20 04/18/20 04/18/20 06:02 05:44 05:44 Hct Gran % 85.7 H Lymph % (Auto) 12.4 L Gran # 9.34 H Lymph # (Auto) 1.35 L [place] # (Auto) Reactive Lymphocytes VBG Lactic Acid Carbon Dioxide 21 L Anion Gap BUN 27 H 24 H Glucose 142 H 136 H Calcium AST 38 H Lactate Dehydrogenase 252 H Total Protein 04/17/20 04/17/20 04/17/20 10:22 10:21 10:21 Hct Gran % Lymph % (Auto) Gran # Lymph # (Auto) [place] # (Auto) Reactive Lymphocytes 4 H VBG Lactic Acid 3.2 H Carbon Dioxide 21 L Anion Gap 21.0 H BUN Glucose 123 H Calcium 10.6 H AST Lactate Dehydrogenase Total Protein 8.6 H 04/17/20 10:21 Hct 45.0 H Gran % Lymph % (Auto) Gran # Lymph # (Auto) [place] # (Auto) 0.97 H Reactive Lymphocytes VBG Lactic Acid Carbon Dioxide Anion Gap BUN Glucose Calcium AST Lactate Dehydrogenase Total Protein Meds: Medications Acetaminophen (Tylenol) 650 mg PO Q6HP PRN PRN Reason: PAIN/FEVER > 101 Last Admin: 04/19/20 06:04 Dose: 650 mg Documented by: Hydrocodone Bitart/Acetaminophen ([place] 10/325mg) 1 tab PO Q6HP PRN; Protocol PRN Reason: Per Pain Protocol Last Admin: 04/19/20 04:10 Dose: 1 tab Documented by: Albuterol/Ipratropium (Combivent) 2 puff INH QID [facility] Last Admin: 04/18/20 20:36 Dose: 2 puff Documented by: Albuterol/Ipratropium (Combivent) 2 puff INH Q4HP PRN PRN Reason: dyspnea Amlodipine Besylate (Norvasc) 10 mg PO QDAY [facility] Last Admin: 04/18/20 09:58 Dose: 10 mg Documented by: Aspirin (Aspirin) 81 mg PO QDAY [facility] Last Admin: 04/18/20 09:57 Dose: 81 mg Documented by: Atorvastatin Calcium (Lipitor) 20 mg PO HS [facility] Last Admin: 04/18/20 20:36 Dose: 20 mg Documented by: Bupropion HCl (Wellbutrin Xl) 150 mg PO QAM [facility] Last Admin: 04/18/20 09:59 Dose: 150 mg Documented by: Dextrose (Dextrose 50%) 0 ml IV UD PRN PRN Reason: Hypoglycemia Diagnostic Test (Pha) (Accu-Chek) 1 each FS ACHS [facility] Last Admin: 04/18/20 20:39 Dose: 1 each Documented by: Docusate Sodium (Colace) 100 mg PO BID [facility] Last Admin: 04/18/20 20:37 Dose: 100 mg Documented by: Enoxaparin Sodium (Lovenox) 40 mg SQ DAILY [facility] Last Admin: 04/18/20 10:02 Dose: 40 mg Documented by: Glucose (Insta-Glucose) 15 gm PO PRN PRN PRN Reason: Hypoglycemia Hydrochlorothiazide (Oretic) 12.5 mg PO DAILY [facility] Last Admin: 04/18/20 09:57 Dose: 12.5 mg Documented by: Potassium Chloride 40 meq/ (Dextrose) 520 mls @ 130 mls/hr IV UD PRN PRN Reason: Potassium < 3 Magnesium Sulfate (Magnesium Sulfate) 2 gm in 50 mls @ 50 mls/hr IV UD PRN PRN Reason: Magnesium </= 1.6 Ceftriaxone Sodium 2 gm/ (Dextrose) 50 mls @ 100 mls/hr IV Q24H [facility]; Protocol Last Infusion: 04/18/20 10:25 Dose: Infused Documented by: Azithromycin 500 mg/ Dextrose 250 mls @ 250 mls/hr IV Q24H [facility]; Protocol Stop: 04/20/20 10:59 Last Infusion: 04/18/20 11:35 Dose: Infused Documented by: Insulin Human Lispro (Humalog) 0 unit SQ ACHS [facility]; Protocol Last Admin: 04/18/20 20:39 Dose: Not Given Documented by: Levothyroxine Sodium (Synthroid) 125 mcg PO QDAY [facility] Last Admin: 04/18/20 09:59 Dose: 125 mcg Documented by: Lisinopril (Zestril) 20 mg PO DAILY [facility] Last Admin: 04/18/20 09:59 Dose: 20 mg Documented by: Methylprednisolone Sodium Succinate (Solu-Medrol) 80 mg IV Q8 [facility] Last Admin: 04/19/20 06:01 Dose: 80 mg Documented by: Montelukast Sodium (Singular) 10 mg PO QDAY [facility] Last Admin: 04/18/20 09:57 Dose: 10 mg Documented by: Ondansetron HCl (Zofran) 4 mg IV Q4HP PRN PRN Reason: Nausea And Vomiting Polyethylene Glycol (Miralax) 17 gm PO DAILYP PRN PRN Reason: Constipation Potassium Chloride (Kdur) 40 meq PO UD PRN PRN Reason: Potssium is 3-3.5 Potassium Chloride (Kdur) 40 meq PO UD PRN PRN Reason: Potassium < 3 Pramipexole Dihydrochloride (Mirapex) 0.125 mg PO BID [facility] Last Admin: 04/18/20 20:36 Dose: 0.125 mg Documented by: Sodium Chloride (Saline Flush) 10 ml IV Q8 [facility] Last Admin: 04/19/20 06:01 Dose: 10 ml Documented by: A/P Narrative A/P Narrative: A: *AECOPD: improving -COVID/RVP neg, SC neg *RLL PNA(Aspiration, on thin liquids per ST: *Moderate Oropharyngeal Dysphagia: *Dyspnea: improved *Lactic acidosis: resolved *SIRS: 2/2 abvoe *HTN/HLD: *Depression/anxiety: * P: -steroids (wean)/nebs -Rocephin/Azithro - -IS/Acapella -Dysphagia diet per ST -ppx: lovenox Time Spent With Patient Time: Total time spent is greater than 50% in coordination of care (as documented) at patient's floor/unit and/or counseling patient: QUALITY VTE Deep Vein Thrombosis/Pulmonary Embolism Present on Admission: No
[2020-04-19] MEDS: INSULIN LISPRO 1 UNIT/0.01 ML UNIT SQ SCH ×2 (08:03→13:10)
[2020-04-19] MEDS: AZITHROMYCIN 500 MG in DEXTROSE 5% IN WATER 250 ML IV SCH (11:31)
[2020-04-19] MEDS ORDERED: IPRATROPIUM/ALBUTEROL 3 ML AMPUL.NEB NEB SCH (13:00)
--- NOTE | 2020-04-19 13:47 | Discharge Summary ---
Discharge Provider Provider Patient information: Note initiated : 04/19/20 at 1:44 pm Service Date, if different from initiated Date: [] Patient: Rosita Blankenship 74 y/o F admitted on 04/17/20 for Shortness of breath. Chief Complaint: [] Date of admission: 04/17/20 14:06 Discharge date: 04/19/20 Primary care physician: Kristie Dowling Consults: 04/17/20 Consult to Physician [CONS] Stat Comment: Consulting Provider: Rolly Knox Reason For Exam: Physician to Consult Discharge Meds Discharge Medications Home Medications albuterol sulfate 8.5 gm IH PRN PRN 06/25/16 [History Confirmed 04/17/20 Last Taken 04/17/20 1 Dose] albuterol sulfate 2.5 mg NEB Q4HRT PRN #30 ampul.neb 06/28/16 [Rx Confirmed 04/17/20 Last Taken 04/17/20 1 Unit Dose] ipratropium-albuterol 3 ml NEB TID #30 ampul.neb 06/28/16 [Rx Confirmed 04/17/20 Last Taken 04/17/20 1 unit Dose] atorvastatin 20 mg tablet 20 mg PO HS #90 tab 07/09/16 [Rx Confirmed 04/17/20 Last Taken 04/16/20 20 mg] lisinopril 20 mg-hydrochlorothiazide 12.5 mg tablet 1 tab PO DAILY #90 tab 07/09/16 [Rx Confirmed 04/17/20 Last Taken 04/16/20 1 Tab] amlodipine 10 mg PO QDAY 04/17/20 [History Confirmed 04/17/20 Last Taken 04/17/20 10 mg] aspirin 81 mg PO QDAY 04/17/20 [History Confirmed 04/17/20 Last Taken 04/17/20 81 mg] bupropion HCl 150 mg PO QAM 04/17/20 [History Confirmed 04/17/20 Last Taken 04/17/20 150 mg] hydrocodone-acetaminophen 1 tab PO Q6H PRN 04/17/20 [History Confirmed 04/17/20 Last Taken 04/17/20 1 Tab] levothyroxine 125 mcg PO QDAY 04/17/20 [History Confirmed 04/17/20 Last Taken 04/17/20 125 mcg] montelukast 10 mg PO QDAY 04/17/20 [History Confirmed 04/17/20 Last Taken 04/16/20 10 mg] pramipexole 0.125 mg PO BID 04/17/20 [History Confirmed 04/17/20 Last Taken 04/17/20 0.125 mg] hydrocodone-acetaminophen 1 tab PO Q6H PRN 04/18/20 [History Confirmed 04/18/20 Last Taken 04/17/20 1 Tab] Lactobacillus acidophilus 2,000 mmu cells PO QDAY #30 cap 04/19/20 [Rx Last Taken Unknown] amoxicillin-pot clavulanate [Augmentin] 1 tab PO BID #6 tab 04/19/20 [Rx Last Taken Unknown] prednisone 40 mg PO QDAY #1 tab 04/19/20 [Rx Last Taken Unknown] COURSE Hospital Course Hospital course: Interval history: History of present illness: Ms. Blankenship is a 74 year old F Presents to the ED with worsening cough and shortness of breath. Patient has COPD and does have chronic shortness of breath and cough but states over the past week or cough is gotten worse and is productive of white thick sputum. Her shortness of breath is worse as well. She has inhalers and nebulizers at home which give her temporary relief. But is gotten so bad that she felt she needed come to the ED. She does feel chills and occasionally hot. She has some nausea but no vomiting. No chest pain. He does feel wheezy and also has lost her appetite. He does admit to feeling that sometimes food or drink goes down the wrong pipe lately. Work-up in the ED revealed that chest x-ray showed a right lower lobe infiltrate. She had a elevated lactate. She was satting low 90s on room air on pulse ox. But she was tachycardic. Received nebulizer treatment with some improvement in ED. 04/18 Patient states her breathing was improving yesterday afternoon early evening but then says last night it got bad again. Cough was more productive yesterday but overnight unable to produce sputum. Awaiting speech therapy evaluation COVID testing. She appears less distressed than when I saw her in the ED yesterday. 04/19 Patient feels much better today. Does not appreciate wheeziness. Minimal dyspnea. Minimal cough. Weaning down steroids. And by speech therapy and found to be aspirating on thin liquids and placed on modified diet. Rosita is doing quite well throughout the morning and early afternoon. She is walking further than she usually does at home. Breathing well and good oxygen on room air. Stable for discharge. A: *AECOPD: -COVID/RVP neg, SC neg *RLL PNA(Aspiration, on thin liquids per ST: *Moderate Oropharyngeal Dysphagia: *HTN/HLD: *Depression/anxiety: Discharge diagnosis: COPD exacerbation aspiration pneumonia dysphagia Secondary discharge diagnosis: Pretension hyperlipidemia depression anxiety Time Spent with Patient Time attestation: Total time spent providing and/or coordinating discharge services: Time spent: Greater than 30 minutes EXAM Constitutional Vitals: Temp Pulse Resp BP Pulse Ox 98.4 F 106 H 18 117/70 90 04/19/20 11:37 04/19/20 13:27 04/19/20 13:27 04/19/20 11:37 04/19/20 13:29 Discharge Data Data Completed and Pending Labs on day of discharge: Labs from last 24 hours 04/19/20 04/17/20 06:02 12:46 Sodium 137 Potassium 3.3 Chloride 99 Carbon Dioxide 24 Anion Gap 14.0 BUN 27 H Creatinine 0.9 GFR Calculation 64 Glucose 142 H Uric Acid 7.2 Calcium 10.1 Phosphorus 4.2 Magnesium 2.3 Total Bilirubin 0.3 Direct Bilirubin < 0.2 GGT 32 AST 38 H ALT 22 Alkaline Phosphatase 68 Lactate Dehydrogenase 249 Total Protein 7.6 Albumin 4.6 Globulin 3.0 Albumin/Globulin Ratio 1.5 Triglycerides 95 SARS-CoV-2 (PCR) Not detected Preliminary micro results at discharge 04/17/20 11:28 Blood Culture - Preliminary Blood 04/17/20 11:35 Blood Culture - Preliminary Blood 04/17/20 17:08 Sputum Culture - Preliminary Sputum - Expectorated Discharge Plan Patient/Caregiver Discharge Instructions Activity: increase activity as tolerated Activity Restrictions/Additional Instructions: Diet per speech therapy recommendations Prescriptions: New amoxicillin-pot clavulanate [Augmentin] 875-125 mg tablet 1 tab PO BID Qty: 6 RF: 0 Lactobacillus acidophilus 1 billion cell capsule 2,000 mmu cells PO QDAY Qty: 30 RF: 0 prednisone 10 mg tablet 40 mg PO QDAY Qty: 1 RF: 0 Continued atorvastatin 20 MG tablet 20 mg PO HS Qty: 90 RF: 0 lisinopril-hydrochlorothiazide 1 TAB tablet 1 tab PO DAILY Qty: 90 RF: 0 albuterol sulfate 8.5 GM HFA aerosol inhaler 8.5 gm IH PRN PRN (Reason: Cough) RF: 0 ipratropium-albuterol 3 ML solution for nebulization 3 ml NEB TID Qty: 30 RF: 0 albuterol sulfate 2.5 MG/3 ML solution for nebulization 2.5 mg NEB Q4HRT PRN (Reason: Shortness Of Breath Or Wheezing) Qty: 30 RF: 0 amlodipine 10 mg Tablet 10 mg PO QDAY RF: 0 hydrocodone-acetaminophen 10-325 mg Tablet 1 tab PO Q6H PRN (Reason: Pain) RF: 0 levothyroxine 125 mcg Tablet 125 mcg PO QDAY RF: 0 pramipexole 0.125 mg Tablet 0.125 mg PO BID RF: 0 aspirin 81 mg Tablet,Chewable 81 mg PO QDAY RF: 0 montelukast 10 mg Tablet 10 mg PO QDAY RF: 0 bupropion HCl 150 mg Tablet Extended Release 24 Hr 150 mg PO QAM RF: 0 hydrocodone-acetaminophen 5-325 mg Tablet 1 tab PO Q6H PRN (Reason: Pain) RF: 0 Follow Up Plan Follow up with: Kristie Dowling ARNP [Primary Care Provider] - Patient Disposition: Home, Self-Care Rehab Potential: Fair Overall status at discharge: patient is back to baseline Discharge Orders: Discharge Order (Routine); Ordered 04/19/20 Ordered By: Rolly Knox [facility] VTE Deep Vein Thrombosis/Pulmonary Embolism Present on Admission: No
[2020-04-19] MEDS ORDERED: methylPREDNISolone SOD SUCC 125 MG/2 ML VIAL IV SCH (14:00)
== END 2020-04-19 15:00 | disposition home or self-care (01) | DRG 190 ==
LOC: ED 10:08 → MEDSUR 14:06
PROVIDERS: ADMIT Internal Medicine; ATTEND Internal Medicine

== ENCOUNTER 2023-08-27 09:17 | Inpatient (IN) ==
[2023-08-27] MEDS ORDERED: IOPAMIDOL 100 ML BOTTLE IV ONE (09:18)
[2023-08-27] MEDS ORDERED: methylPREDNISolone SOD SUCC 125 MG/2 ML VIAL IV ONE (09:33)
[2023-08-27] MEDS ORDERED: IPRATROPIUM/ALBUTEROL 3 ML AMPUL.NEB NEB ONE ×2 (09:33→10:56)
[2023-08-27] MEDS ORDERED: FUROSEMIDE 20 MG/2 ML VIAL IV ONE (09:55)
[2023-08-27 10:26] LABS: Basophils # (Auto) 0.04 K/mcL (0.00-0.30); Basophils % (Auto) 0.3 % (0.0-2.0); Eosinophils % (Auto) 4.8 % (0.0-7.0); Hematocrit 37.7 % (34.1-44.9); Hemoglobin 12.4 g/dL (11.2-15.7); Lymphocytes # (Auto) 2.32 K/mcL (1.50-4.80); Lymphocytes % (Auto) 18.6 % (15.5-49.0); Mean Cell Volume 95.2 fL (80.0-100.0); Mean Corpuscular HGB Conc 32.9 g/dL (31.0-36.0); Mean Platelet Volume 9.2 fL (8.8-12.5); Monocytes # (Auto) 1.26 K/mcL (0.10-0.90); Monocytes % (Auto) 10.1 % (1.0-12.0); Neutrophils % (Auto) 65.9 % (38.0-78.0); Platelet Count 405 K/mcL (140-440); RBC 3.96 M/mcL (3.59-5.38); Red Cell Distribution Width 12.5 % (11.5-14.5); WBC 12.5 K/mcL (4.5-11.0)
[2023-08-27] MEDS ORDERED: AZITHROMYCIN 500 MG in DEXTROSE 5% IN WATER 250 ML IV ONE (10:33)
[2023-08-27] MEDS ORDERED: cefTRIAXone 2 GM in DEXTROSE 5% IN WATER 50 ML IV ONE (10:33)
[2023-08-27 10:39] LABS: ALT/SGPT 22 U/L (<40); AST/SGOT 28 U/L (<32); Albumin 4.7 gm/dL (3.2-5.2); Albumin/Globulin Ratio 1.6 (1.0-2.3); Alkaline Phosphatase 77 U/L (39-117); Bilirubin,Total 0.4 mg/dL (0.1-1.0); Blood Urea Nitrogen 20 mg/dL (8-23); Calcium 9.7 mg/dL (8.6-10.4); Carbon Dioxide 27 mmol/L (22-30); Chloride 98 mmol/L (96-108); Globulin 2.9 gm/dL (2.2-3.7); Glomerular Filtration Rate 72; Glucose 121 mg/dL (70-105)
[2023-08-27 14:44] LABS: Eosinophils % (Manual) 4 % (0-7); Lymphocytes % 20 % (15-49); Monocytes % (Manual) 6 % (1-12); Platelet Estimate NORMAL (Normal); RBC Morphology NORMAL (Normal); Segmented Neutrophils % 70 % (38-78)
[2023-08-27] MEDS ORDERED: POTASSIUM CHLORIDE 20 MEQ TABLET PO PRN ×2 (14:44)
[2023-08-27] MEDS ORDERED: POTASSIUM CHLORIDE 40 MEQ in DEXTROSE 5% IN WATER 500 ML IV PRN (14:44)
[2023-08-27] MEDS ORDERED: MAGNESIUM SULFATE 2 GM/50 ML BAG IV PRN (14:44)
[2023-08-27] MEDS ORDERED: ACETAMINOPHEN 325 MG TABLET PO PRN (14:44)
[2023-08-27] MEDS ORDERED: POLYETHYLENE GLYCOL 3350 17 GM PACKET PO PRN (14:44)
[2023-08-27] MEDS ORDERED: ONDANSETRON 4 MG/2 ML VIAL IV PRN (14:44)
[2023-08-27] MEDS ORDERED: hydrALAZINE 20 MG/ML VIAL IV PRN (14:44)
[2023-08-27] MEDS ORDERED: SENNOSIDES 1 TABLET PO PRN (14:44)
[2023-08-27] MEDS: methylPREDNISolone SOD SUCC 125 MG/2 ML VIAL IV SCH ×2 (15:31→21:54)
[2023-08-27] MEDS: 0.9 % SODIUM CHLORIDE 10 ML SYRINGE IV SCH ×2 (15:32→22:13)
[2023-08-27] MEDS ORDERED: HYDROcodone/APAP 10/325MG TABLET PO PRN (16:13)
[2023-08-27] MEDS ORDERED: HYDROcodone/APAP 10/325MG TABLET PO ONE (16:23)
[2023-08-27] MEDS: IPRATROPIUM/ALBUTEROL 3 ML AMPUL.NEB NEB SCH ×2 (19:48→23:57)
[2023-08-27] MEDS: DOCUSATE SODIUM 100 MG CAPSULE PO SCH (21:53)
[2023-08-27] MEDS: ATORVASTATIN 20 MG TABLET PO SCH (21:54)
[2023-08-27] MEDS: HYDROcodone/APAP 10/325MG TABLET PO PRN (22:13)
[2023-08-27] MEDS: BUDESONIDE 0.5 MG/2 ML AMPUL.NEB NEB SCH (23:58)
[2023-08-28 05:54] LABS: Basophils # (Auto) 0.01 K/mcL (0.00-0.30); Basophils % (Auto) 0.1 % (0.0-2.0); Eosinophils # (Auto) 0 K/mcL (0.00-0.70); Eosinophils % (Auto) 0 % (0.0-7.0); Hematocrit 38.2 % (34.1-44.9); Hemoglobin 12.8 g/dL (11.2-15.7); Lymphocytes # (Auto) 1.09 K/mcL (1.50-4.80); Lymphocytes % (Auto) 9.9 % (15.5-49.0); Mean Cell Volume 93.6 fL (80.0-100.0); Mean Corpuscular HGB Conc 33.5 g/dL (31.0-36.0); Monocytes # (Auto) 0.25 K/mcL (0.10-0.90); Monocytes % (Auto) 2.3 % (1.0-12.0); Neutrophils % (Auto) 87.2 % (38.0-78.0); Platelet Count 377 K/mcL (140-440); RBC 4.08 M/mcL (3.59-5.38); Red Cell Distribution Width 12.1 % (11.5-14.5)
[2023-08-28] MEDS: HYDROcodone/APAP 10/325MG TABLET PO PRN ×3 (06:00→18:02)
[2023-08-28] MEDS: 0.9 % SODIUM CHLORIDE 10 ML SYRINGE IV SCH ×3 (06:01→22:10)
[2023-08-28] MEDS: methylPREDNISolone SOD SUCC 125 MG/2 ML VIAL IV SCH ×3 (06:01→22:10)
[2023-08-28 06:15] LABS: ALT/SGPT 18 U/L (<40); AST/SGOT 24 U/L (<32); Albumin 4.4 gm/dL (3.2-5.2); Albumin/Globulin Ratio 1.5 (1.0-2.3); Alkaline Phosphatase 73 U/L (39-117); Bilirubin,Direct < 0.2 mg/dL (0-0.3); Bilirubin,Total 0.3 mg/dL (0.1-1.0); Blood Urea Nitrogen 19 mg/dL (8-23); Calcium 9.7 mg/dL (8.6-10.4); Carbon Dioxide 26 mmol/L (22-30); Chloride 97 mmol/L (96-108); Globulin 2.9 gm/dL (2.2-3.7); Glomerular Filtration Rate 89; Glucose 147 mg/dL (70-105); Lactate Dehydrogenase 218 U/L (135-225); Phosphorous 3.2 mg/dL (2.5-4.5); Triglycerides 74 mg/dL (<150); Uric Acid 6.7 mg/dL (2.5-8.0)
[2023-08-28] MEDS: IPRATROPIUM/ALBUTEROL 3 ML AMPUL.NEB NEB SCH ×2 (06:22→13:23)
[2023-08-28] MEDS: BUDESONIDE 0.5 MG/2 ML AMPUL.NEB NEB SCH ×3 (07:08→19:42)
[2023-08-28] MEDS ORDERED: METOPROLOL TARTRATE 25 MG TABLET PO ONE (08:28)
[2023-08-28] MEDS: LISINOPRIL 20 MG TABLET PO SCH (08:55)
[2023-08-28] MEDS: ASPIRIN 81 MG TAB.CHEW PO SCH (08:55)
[2023-08-28] MEDS: ENOXAPARIN 40 MG/0.4 ML SYRINGE SQ SCH (08:55)
[2023-08-28] MEDS: amLODIPine 10 MG TABLET PO SCH (08:55)
[2023-08-28] MEDS: AZITHROMYCIN 250 MG TABLET PO SCH (08:58)
[2023-08-28] MEDS: LEVOTHYROXINE 125 MCG TABLET PO SCH (08:59)
[2023-08-28] MEDS: DOCUSATE SODIUM 100 MG CAPSULE PO SCH ×2 (09:00→22:09)
[2023-08-28] MEDS ORDERED: LOPERAMIDE 2 MG CAPSULE PO PRN (10:23)
[2023-08-28] MEDS ORDERED: LOPERAMIDE 2 MG CAPSULE PO ONE (10:23)
[2023-08-28] MEDS: IPRATROPIUM/ALBUTEROL 3 ML AMPUL.NEB NEB PRN (18:56)
[2023-08-28] MEDS: ATORVASTATIN 20 MG TABLET PO SCH (22:09)
[2023-08-29] MEDS: HYDROcodone/APAP 10/325MG TABLET PO PRN ×4 (00:37→20:33)
[2023-08-29] MEDS: methylPREDNISolone SOD SUCC 125 MG/2 ML VIAL IV SCH (05:58)
[2023-08-29] MEDS: 0.9 % SODIUM CHLORIDE 10 ML SYRINGE IV SCH ×3 (06:09→20:35)
[2023-08-29] MEDS: LEVOTHYROXINE 125 MCG TABLET PO SCH (07:56)
[2023-08-29] MEDS: BUDESONIDE 0.5 MG/2 ML AMPUL.NEB NEB SCH ×2 (08:00→21:03)
[2023-08-29] MEDS: IPRATROPIUM/ALBUTEROL 3 ML AMPUL.NEB NEB PRN ×3 (08:00→21:05)
[2023-08-29] MEDS: amLODIPine 10 MG TABLET PO SCH (08:37)
[2023-08-29] MEDS: LISINOPRIL 20 MG TABLET PO SCH (08:37)
[2023-08-29] MEDS: ASPIRIN 81 MG TAB.CHEW PO SCH (08:37)
[2023-08-29] MEDS: ENOXAPARIN 40 MG/0.4 ML SYRINGE SQ SCH (08:38)
[2023-08-29] MEDS: AZITHROMYCIN 250 MG TABLET PO SCH (08:38)
[2023-08-29] MEDS: DOCUSATE SODIUM 100 MG CAPSULE PO SCH ×2 (08:38→20:34)
[2023-08-29] MEDS ORDERED: FUROSEMIDE 40 MG/4 ML VIAL IV SCH (09:26)
[2023-08-29] MEDS: ATORVASTATIN 20 MG TABLET PO SCH (20:34)
[2023-08-29] MEDS: predniSONE 20 MG TABLET PO SCH (20:34)
[2023-08-30] MEDS: HYDROcodone/APAP 10/325MG TABLET PO PRN ×2 (03:51→11:42)
[2023-08-30] MEDS: 0.9 % SODIUM CHLORIDE 10 ML SYRINGE IV SCH (05:15)
[2023-08-30 07:28] LABS: Blood Urea Nitrogen 31 mg/dL (8-23); Calcium 9.4 mg/dL (8.6-10.4); Carbon Dioxide 28 mmol/L (22-30); Chloride 98 mmol/L (96-108); Glomerular Filtration Rate 84; Glucose 122 mg/dL (70-105)
[2023-08-30] MEDS: LEVOTHYROXINE 125 MCG TABLET PO SCH (07:48)
[2023-08-30] MEDS: BUDESONIDE 0.5 MG/2 ML AMPUL.NEB NEB SCH (08:17)
[2023-08-30] MEDS: IPRATROPIUM/ALBUTEROL 3 ML AMPUL.NEB NEB PRN (08:17)
[2023-08-30] MEDS ORDERED: FUROSEMIDE 40 MG/4 ML VIAL IV ONE (09:05)
[2023-08-30] MEDS: ENOXAPARIN 40 MG/0.4 ML SYRINGE SQ SCH (09:46)
[2023-08-30] MEDS: amLODIPine 10 MG TABLET PO SCH (09:47)
[2023-08-30] MEDS: predniSONE 20 MG TABLET PO SCH (09:47)
[2023-08-30] MEDS: LISINOPRIL 20 MG TABLET PO SCH (09:48)
[2023-08-30] MEDS: DOCUSATE SODIUM 100 MG CAPSULE PO SCH (09:48)
[2023-08-30] MEDS: ASPIRIN 81 MG TAB.CHEW PO SCH (09:48)
== END 2023-08-30 12:35 | DRG 189 ==
LOC: ED 09:17 → ICU 14:37 → MEDSUR 08-28 10:46
PROVIDERS: ADMIT Internal Medicine; ATTEND Internal Medicine

== ENCOUNTER 2025-07-29 08:28 | Inpatient (IN) ==
[2025-07-29] MEDS: IPRATROPIUM/ALBUTEROL 3 ML AMPUL.NEB NEB ONE ×2 (09:10→09:11)
[2025-07-29 09:30] LABS: Basophils # (Auto) 0.04 K/mcL (0.00-0.30); Basophils % (Auto) 0.3 % (0.0-2.0); Eosinophils # (Auto) 0.51 K/mcL (0.00-0.70); Eosinophils % (Auto) 3.5 % (0.0-7.0); Hematocrit 39.4 % (34.1-44.9); Hemoglobin 13.0 g/dL (11.2-15.7); Lymphocytes # (Auto) 3.90 K/mcL (1.50-4.80); Lymphocytes % (Auto) 26.9 % (15.5-49.0); Mean Corpuscular HGB Conc 33.0 g/dL (31.0-36.0); Monocytes # (Auto) 1.30 K/mcL (0.10-0.90); Monocytes % (Auto) 9.0 % (1.0-12.0); Neutrophils % (Auto) 59.8 % (38.0-78.0); Platelet Count 323 K/mcL (140-440); RBC 4.15 M/mcL (3.59-5.38); WBC 14.5 K/mcL (4.5-11.0)
[2025-07-29 09:43] LABS: Anion Gap 15.0 (8.0-16.0); Blood Urea Nitrogen 18 mg/dL (8-23); Calcium 9.9 mg/dL (8.6-10.4); Carbon Dioxide 28 mmol/L (22-30); Chloride 95 mmol/L (96-108); Glucose 92 mg/dL (70-105); Potassium 3.8 mmol/L (3.3-5.1); Sodium 138 mmol/L (133-145)
[2025-07-29] MEDS ORDERED: ONDANSETRON 4 MG/2 ML VIAL IV PRN (14:21)
[2025-07-29] MEDS ORDERED: ACETAMINOPHEN 325 MG TABLET PO PRN (14:21)
[2025-07-29] MEDS ORDERED: ALBUTEROL SULFATE 60 PUFF INHALER INH PRN (14:44)
[2025-07-29] MEDS: HYDROcodone/APAP 10/325MG TABLET PO PRN (14:48)
[2025-07-29] MEDS: 0.9 % SODIUM CHLORIDE 10 ML SYRINGE IV SCH (14:50)
[2025-07-29] MEDS: guaiFENesin/DEXTROMETHORPHAN 5ML UD CUP PO PRN (15:06)
[2025-07-29] MEDS: IPRATROPIUM/ALBUTEROL 3 ML AMPUL.NEB NEB SCH (16:17)
[2025-07-29] MEDS ORDERED: METOPROLOL TARTRATE 5 MG/5 ML VIAL IV PRN (16:39)
[2025-07-29] MEDS ORDERED: IPRATROPIUM/ALBUTEROL 3 ML AMPUL.NEB NEB SCH (17:00)
[2025-07-29] MEDS ORDERED: POLYETHYLENE GLYCOL 3350 17 GM PACKET PO PRN (18:01)
[2025-07-29] MEDS: AMOXICILLIN/POTASSIUM CLAV 875 MG TABLET PO SCH (18:11)
[2025-07-29] MEDS: Budesonide-Glycopyrrolate-Formoterol [Breztri Aerosphere] Inhaler PO SCH (20:47)
[2025-07-29] MEDS: ATORVASTATIN 20 MG TABLET PO SCH (20:47)
[2025-07-29] MEDS: SENNOSIDES 1 TABLET PO SCH (20:47)
[2025-07-29] MEDS: DOCUSATE SODIUM 100 MG CAPSULE PO SCH (20:47)
[2025-07-30 06:28] LABS: Basophils # (Auto) 0 K/mcL (0.00-0.30); Basophils % (Auto) 0 % (0.0-2.0); Eosinophils # (Auto) 0 K/mcL (0.00-0.70); Eosinophils % (Auto) 0 % (0.0-7.0); Hematocrit 38.7 % (34.1-44.9); Hemoglobin 13.0 g/dL (11.2-15.7); Lymphocytes # (Auto) 1.17 K/mcL (1.50-4.80); Lymphocytes % (Auto) 9.5 % (15.5-49.0); Mean Corpuscular HGB Conc 33.6 g/dL (31.0-36.0); Monocytes # (Auto) 0.43 K/mcL (0.10-0.90); Monocytes % (Auto) 3.5 % (1.0-12.0); Neutrophils % (Auto) 86.1 % (38.0-78.0); Platelet Count 385 K/mcL (140-440); RBC 4.16 M/mcL (3.59-5.38); WBC 12.4 K/mcL (4.5-11.0)
[2025-07-30 06:55] LABS: ALT/SGPT 25 U/L (<40); AST/SGOT 22 U/L (<32); Albumin 4.5 gm/dL (3.2-5.2); Albumin/Globulin Ratio 1.4 (1.0-2.3); Alkaline Phosphatase 76 U/L (39-117); Anion Gap 14.0 (8.0-16.0); Bilirubin,Total 0.3 mg/dL (0.1-1.0); Blood Urea Nitrogen 30 mg/dL (8-23); Calcium 10.2 mg/dL (8.6-10.4); Carbon Dioxide 27 mmol/L (22-30); Chloride 94 mmol/L (96-108); Globulin 3.2 gm/dL (2.2-3.7); Glucose 148 mg/dL (70-105); Potassium 4.6 mmol/L (3.3-5.1); Sodium 135 mmol/L (133-145)
[2025-07-30] MEDS: LEVOTHYROXINE 125 MCG TABLET PO SCH (07:30)
[2025-07-30] MEDS: MULTIVIT,THER IRON,CA,FA & MIN 1 TABLET PO SCH (08:43)
[2025-07-30] MEDS: HYDROCHLOROTHIAZIDE 25 MG TABLET PO SCH (08:43)
[2025-07-30] MEDS: LISINOPRIL 20 MG TABLET PO SCH (08:45)
[2025-07-30] MEDS ORDERED: NON FORMULARY MEDICATION 1 DOSE MISCELL (Lisinopril-Hydrochlorothiazide 20-25 mg tablet) PO SCH (09:00)
[2025-07-30] MEDS: ENOXAPARIN 40 MG/0.4 ML SYRINGE SQ SCH (10:54)
[2025-07-31 06:59] LABS: Basophils # (Auto) 0 K/mcL (0.00-0.30); Basophils % (Auto) 0 % (0.0-2.0); Eosinophils # (Auto) 0 K/mcL (0.00-0.70); Eosinophils % (Auto) 0 % (0.0-7.0); Hematocrit 37.4 % (34.1-44.9); Hemoglobin 12.3 g/dL (11.2-15.7); Lymphocytes # (Auto) 1.06 K/mcL (1.50-4.80); Lymphocytes % (Auto) 7.7 % (15.5-49.0); Mean Corpuscular HGB Conc 32.9 g/dL (31.0-36.0); Monocytes # (Auto) 0.73 K/mcL (0.10-0.90); Monocytes % (Auto) 5.3 % (1.0-12.0); Neutrophils % (Auto) 86.4 % (38.0-78.0); Platelet Count 352 K/mcL (140-440); RBC 3.94 M/mcL (3.59-5.38); WBC 13.7 K/mcL (4.5-11.0)
[2025-07-31 07:09] LABS: ALT/SGPT 23 U/L (<40); AST/SGOT 19 U/L (<32); Albumin 4.0 gm/dL (3.2-5.2); Albumin/Globulin Ratio 1.5 (1.0-2.3); Alkaline Phosphatase 61 U/L (39-117); Anion Gap 12.0 (8.0-16.0); Bilirubin,Total < 0.2 mg/dL (0.1-1.0); Blood Urea Nitrogen 27 mg/dL (8-23); Calcium 9.3 mg/dL (8.6-10.4); Carbon Dioxide 28 mmol/L (22-30); Chloride 97 mmol/L (96-108); Globulin 2.7 gm/dL (2.2-3.7); Glucose 125 mg/dL (70-105); Potassium 4.3 mmol/L (3.3-5.1); Sodium 137 mmol/L (133-145)
[2025-08-01 06:09] LABS: Basophils # (Auto) 0.01 K/mcL (0.00-0.30); Basophils % (Auto) 0.1 % (0.0-2.0); Eosinophils # (Auto) 0 K/mcL (0.00-0.70); Eosinophils % (Auto) 0 % (0.0-7.0); Hematocrit 40.1 % (34.1-44.9); Hemoglobin 13.4 g/dL (11.2-15.7); Lymphocytes # (Auto) 0.90 K/mcL (1.50-4.80); Lymphocytes % (Auto) 6.7 % (15.5-49.0); Mean Corpuscular HGB Conc 33.4 g/dL (31.0-36.0); Monocytes # (Auto) 0.54 K/mcL (0.10-0.90); Monocytes % (Auto) 4.0 % (1.0-12.0); Neutrophils % (Auto) 88.1 % (38.0-78.0); Platelet Count 367 K/mcL (140-440); RBC 4.21 M/mcL (3.59-5.38); WBC 13.5 K/mcL (4.5-11.0)
[2025-08-01 06:31] LABS: ALT/SGPT 29 U/L (<40); AST/SGOT 22 U/L (<32); Albumin 4.2 gm/dL (3.2-5.2); Albumin/Globulin Ratio 1.4 (1.0-2.3); Alkaline Phosphatase 67 U/L (39-117); Anion Gap 13.0 (8.0-16.0); Bilirubin,Total 0.2 mg/dL (0.1-1.0); Blood Urea Nitrogen 27 mg/dL (8-23); Calcium 9.6 mg/dL (8.6-10.4); Carbon Dioxide 27 mmol/L (22-30); Chloride 98 mmol/L (96-108); Globulin 3.1 gm/dL (2.2-3.7); Glucose 117 mg/dL (70-105); Potassium 4.4 mmol/L (3.3-5.1); Sodium 138 mmol/L (133-145)
[2025-08-01 08:23] VITALS: TEMP 97.8; O2SAT 95
[2025-08-01] MEDS: FLU VACC TS2025-26(65YR UP)/PF 180 MCG/0.5 ML SYRINGE IM ONE (11:32)
[2025-08-01] MEDS ORDERED: HYDROcodone/APAP 10/325MG TABLET PO PRN (12:10)
[2025-08-01] MEDS ORDERED: NON FORMULARY MEDICATION 1 DOSE MISCELL (Budesonide-Glycopyr-Formoterol [Breztri Aerospher INHALATION SCH (21:00)
== END 2025-08-01 15:42 | disposition home or self-care (01) | DRG 190 ==
LOC: ED 08:28 → MEDSUR 08:28
PROVIDERS: ADMIT Internal Medicine; ATTEND Internal Medicine